=== PATIENT | female | born 1995 | race Caucasian/White ===

== ENCOUNTER 2020-07-22 06:04 | Inpatient (IN) | payer OTHER ==
[2020-07-22 07:16] VITALS: BMI 40.8
[2020-07-22] MEDS ORDERED: CITRIC ACID/SODIUM CITRATE 30 ML UNIT-DOSE CUP PO ONE (07:21)
[2020-07-22] MEDS ORDERED: ELECTROLYTE-148 SOLN 500 ML IV ONE (07:21)
[2020-07-22] MEDS ORDERED: morphine SULFATE/PF 0.5 MG/ML (2cc Syringe - QUVA) ONE (08:03)
[2020-07-22] MEDS ORDERED: PHENYLEPHRINE HCL 10 MG/1 ML SINGLE DOSE VIAL ONE (08:03)
[2020-07-22] MEDS ORDERED: ceFAZolin SODIUM 1 GM VIAL ONE (08:45)
[2020-07-22] MEDS ORDERED: ONDANSETRON 4 MG/2 ML VIAL ONE (08:46)
[2020-07-22] MEDS ORDERED: ONDANSETRON 4 MG/2 ML VIAL IVPUSH PRN (09:13)
[2020-07-22] MEDS ORDERED: OXYTOCIN 20 UNITS in 0.9% NS 20 UNIT/1,000 ML INFUS.BAG IV ONE (09:26)
[2020-07-22] MEDS ORDERED: BENZOCAINE 28 GM HEMORRHOIDAL OINTMENT TP PRN (10:00)
[2020-07-22] MEDS ORDERED: IBUPROFEN 800 MG/8 ML IJ IVPB PRN (10:00)
[2020-07-22] MEDS ORDERED: WITCH HAZEL 50% (TUCKS) 40 PAD/JAR PAD TP PRN (10:00)
[2020-07-22] MEDS ORDERED: oxyCODONE HCL 5 MG TABLET PO PRN (10:00)
[2020-07-22] MEDS ORDERED: BENZOCAINE 20% 57 GM BOTTLE TP PRN (10:00)
[2020-07-22] MEDS ORDERED: METHYLERGONOVINE MALEATE 0.2 MG/1 ML AMP IM PRN (10:00)
[2020-07-22] MEDS ORDERED: OXYTOCIN 20 UNITS in 0.9% NS 20 UNIT/1,000 ML INFUS.BAG IV SCH (10:00)
[2020-07-22] MEDS: PRENATAL VITAMINS W/ FOLIC ACID TABLET (FP) PO SCH (11:54)
[2020-07-22] MEDS: FERROUS SO4 325 MG TABLET (FP) PO SCH (16:45)
[2020-07-23] MEDS: SIMETHICONE 80 MG TAB.CHEW (FP) PO PRN ×3 (04:52→21:01)
[2020-07-23] MEDS: IBUPROFEN 600 MG TABLET (FP) PO PRN ×3 (04:52→21:03)
[2020-07-23] MEDS: ACETAMINOPHEN 325 MG TABLET (FP) PO PRN ×3 (04:52→21:03)
[2020-07-23 07:55] LABS: BASO % 0.4 % (0-2.0); EOS % 0.3 % (0-4.5); HEMATOCRIT 33.6 % (32.4-45.2); HEMOGLOBIN 10.6 GM/dL (10.7-15.3); MCH 28.6 pg (25.7-33.7); MCHC 31.6 g/dl (32.0-36.0); MEAN CELL VOLUME 90.5 fl (80-96); MEAN PLT VOLUME 10.1 fl (7.5-11.1); MONO % 5.5 % (3.8-10.2); NEUT % 85.8 % (42.8-82.8); PLATELET COUNT 95 K/MM3 (134-434); RBC 3.71 M/mm3 (3.60-5.2); WHITE BLOOD COUNT 13.5 K/mm3 (4.0-10.0)
[2020-07-23] MEDS: PRENATAL VITAMINS W/ FOLIC ACID TABLET (FP) PO SCH (09:44)
[2020-07-23] MEDS: FERROUS SO4 325 MG TABLET (FP) PO SCH ×2 (09:44→17:18)
[2020-07-23] MEDS ORDERED: BISACODYL 10 MG SUPP.RECT RC PRN (10:00)
[2020-07-23] MEDS: SENNOSIDES/DOCUSATE COMBO (SENNA PLUS) TABLET (UD) PO PRN (21:03)
[2020-07-23] MEDS: oxyCODONE HCL 5 MG TABLET PO PRN (21:04)
[2020-07-24] MEDS: IBUPROFEN 600 MG TABLET (FP) PO PRN ×2 (09:16→19:35)
[2020-07-24] MEDS: SIMETHICONE 80 MG TAB.CHEW (FP) PO PRN ×3 (09:16→19:34)
[2020-07-24] MEDS: PRENATAL VITAMINS W/ FOLIC ACID TABLET (FP) PO SCH (09:16)
[2020-07-24] MEDS: FERROUS SO4 325 MG TABLET (FP) PO SCH ×2 (09:17→17:19)
[2020-07-24] MEDS: ACETAMINOPHEN 325 MG TABLET (FP) PO PRN ×3 (09:17→20:49)
[2020-07-24] MEDS: oxyCODONE HCL 5 MG TABLET PO PRN ×3 (09:18→19:37)
[2020-07-24] MEDS: SENNOSIDES/DOCUSATE COMBO (SENNA PLUS) TABLET (UD) PO PRN (19:34)
[2020-07-25] MEDS: IBUPROFEN 600 MG TABLET (FP) PO PRN ×2 (05:59→10:05)
[2020-07-25] MEDS: SIMETHICONE 80 MG TAB.CHEW (FP) PO PRN (05:59)
[2020-07-25] MEDS: oxyCODONE HCL 5 MG TABLET PO PRN (06:00)
[2020-07-25 07:31] LABS: BASO % 0.2 % (0-2.0); EOS % 1.5 % (0-4.5); HEMATOCRIT 29.4 % (32.4-45.2); HEMOGLOBIN 9.7 GM/dL (10.7-15.3); LYMPH % 10.3 % (8-40); MCH 29.5 pg (25.7-33.7); MCHC 32.9 g/dl (32.0-36.0); MEAN CELL VOLUME 89.7 fl (80-96); MEAN PLT VOLUME 9.9 fl (7.5-11.1); MONO % 8.4 % (3.8-10.2); NEUT % 79.6 % (42.8-82.8); PLATELET COUNT 129 K/MM3 (134-434); RBC 3.28 M/mm3 (3.60-5.2); RDW 14.9 % (11.6-15.6); WHITE BLOOD COUNT 11.8 K/mm3 (4.0-10.0)
[2020-07-25 09:49] VITALS: BP 127/81; PULSE 75; TEMP 98.2
[2020-07-25] MEDS: PRENATAL VITAMINS W/ FOLIC ACID TABLET (FP) PO SCH (10:04)
[2020-07-25] MEDS: ACETAMINOPHEN 325 MG TABLET (FP) PO PRN (10:04)
[2020-07-25] MEDS: FERROUS SO4 325 MG TABLET (FP) PO SCH (10:04)
== END 2020-07-25 15:30 | disposition home or self-care (01) | DRG 540 ==
LOC: JLDR 06:04 → J3W 11:30
PROVIDERS: ADMIT Obstetrics & Gynecology; ATTEND Obstetrics & Gynecology
PROC: 10D00Z1 Extraction of Products of Conception, Low, Open Approach (ICD-10-PCS; principal; 2020-07-22)
DX: O30.033 Twin pregnancy, monochorionic/diamniotic, third trimester (principal); Z37.2 Twins, both liveborn; O32.8XX2 Maternal care for other malpresentation of fetus, fetus 2; Z3A.37 37 weeks gestation of pregnancy
CPT/HCPCS: 36415; 80048; 85025; 85610; 85730; 86780; 86850; 86900; 86901; 88307-TC; C9803; U0003; U0005

== ENCOUNTER 2024-01-08 06:21 | Inpatient (IN) | payer OTHER ==
[2024-01-08] MEDS: ELECTROLYTE-148 SOLN 500 ML IV ONE (07:20)
[2024-01-08 07:23] VITALS: BMI 40.8
[2024-01-08] MEDS: CITRIC ACID/SODIUM CITRATE 30 ML UNIT-DOSE CUP PO ONE (07:27)
[2024-01-08] MEDS ORDERED: PHENYLEPHRINE HCL 10 MG/1 ML SINGLE DOSE VIAL ONE (07:50)
[2024-01-08] MEDS ORDERED: morphine SULFATE/PF 1 MG/2 ML (2cc Syringe - QUVA) ONE (07:50)
[2024-01-08] MEDS ORDERED: FENTANYL CITRATE/PF 50 MCG/ML VIAL ONE (07:50)
[2024-01-08] MEDS ORDERED: OXYTOCIN 10 UNITS/ML VIAL ONE (08:18)
[2024-01-08] MEDS ORDERED: ONDANSETRON 4 MG/2 ML VIAL ONE (08:40)
[2024-01-08] MEDS ORDERED: MIDAZOLAM HCL 2 MG/2 ML SINGLE DOSE VIAL ONE (09:00)
[2024-01-08 10:02] LABS: CORD HCO3 26.9 mmHg (20-29); CORD PCO2 64.8 mmHg (30-78); CORD pH 7.236 (7.14-7.44)
[2024-01-08 10:05] LABS: CORD HCO3 25.6 mmHg (20-29); CORD PCO2 49.6 mmHg (30-78); CORD pH 7.331 (7.14-7.44)
[2024-01-08] MEDS ORDERED: ONDANSETRON 4 MG/2 ML VIAL IVPUSH PRN (10:20)
[2024-01-08] MEDS ORDERED: OXYTOCIN 20 UNITS in 0.9% NS 20 UNIT/1,000 ML INFUS.BAG IV ONE (10:49)
[2024-01-08] MEDS ORDERED: IBUPROFEN 800 MG/8 ML IJ IVPB ONE (11:40)
[2024-01-08] MEDS: IBUPROFEN 800 MG/8 ML IJ IVPB PRN (11:45)
[2024-01-08] MEDS: BETAMETHASONE DIP 0.05% TP LOTION 60 ML BOTTLE TP SCH (11:48)
[2024-01-08] MEDS ORDERED: METHYLERGONOVINE MALEATE 0.2 MG/1 ML AMP IM PRN (12:59)
[2024-01-08] MEDS: ACETAMINOPHEN 1000 MG/100 ML BAG IVPB PRN (13:11)
[2024-01-08] MEDS: OXYTOCIN 20 UNITS in 0.9% NS 20 UNIT/1,000 ML INFUS.BAG IV SCH (19:04)
[2024-01-09] MEDS: IBUPROFEN 600 MG TABLET (FP) PO PRN (05:24)
[2024-01-09 08:05] LABS: BASO % 0.2 % (0-2.0); HEMATOCRIT 34.3 % (32.4-45.2); HEMOGLOBIN 11.3 GM/dL (10.7-15.3); LYMPH % 11.8 % (8-40); MCH 29.3 pg (25.7-33.7); MEAN PLT VOLUME 8.9 fl (7.5-11.1); MONO % 7.4 % (3.8-10.2); NEUT % 79.6 % (42.8-82.8); PLATELET COUNT 180 10^3/uL (134-434); RBC 3.86 M/mm3 (3.60-5.2); WHITE BLOOD COUNT 10.4 K/mm3 (4.0-10.0)
[2024-01-09] MEDS: ACETAMINOPHEN 325 MG TABLET (FP) PO PRN (09:06)
[2024-01-09] MEDS: ENOXAPARIN NA (PORCINE) 40 MG/0.4 ML DISP.SYRIN SQ SCH (09:06)
[2024-01-09] MEDS: BISACODYL 10 MG SUPP.RECT RC PRN (14:51)
[2024-01-09] MEDS: oxyCODONE HCL 5 MG TABLET PO PRN (14:51)
[2024-01-09] MEDS: SIMETHICONE 80 MG TAB.CHEW (FP) PO PRN (17:01)
[2024-01-09 20:41] VITALS: RESP 18
[2024-01-10] MEDS: oxyCODONE HCL 5 MG TABLET PO PRN (02:31)
[2024-01-10] MEDS: ELECTROLYTE-148 SOLN 1,000 ML IV SCH (07:15)
[2024-01-10] MEDS: ACETAMINOPHEN 325 MG TABLET (FP) PO SCH (09:51)
[2024-01-10] MEDS: IBUPROFEN 600 MG TABLET (FP) PO SCH (12:05)
[2024-01-10 21:54] VITALS: BP 115/74; PULSE 68; TEMP 98.2
[2024-01-11 08:21] LABS: BASO % 0.3 % (0-2.0); EOS % 1.8 % (0-4.5); HEMATOCRIT 35.4 % (32.4-45.2); HEMOGLOBIN 11.3 GM/dL (10.7-15.3); LYMPH % 17.3 % (8-40); MCH 28.6 pg (25.7-33.7); MCHC 31.9 g/dl (32.0-36.0); MEAN CELL VOLUME 89.7 fl (80-96); MEAN PLT VOLUME 8.5 fl (7.5-11.1); NEUT % 70.6 % (42.8-82.8); PLATELET COUNT 243 10^3/uL (134-434); RBC 3.95 M/mm3 (3.60-5.2); RDW 13.7 % (11.6-15.6)
== END 2024-01-11 11:30 | disposition home or self-care (01) | DRG 788 ==
LOC: JLDR 06:21 → J3W 12:40
PROVIDERS: ADMIT Obstetrics & Gynecology; ATTEND Obstetrics & Gynecology
PROC: 10D00Z1 Extraction of Products of Conception, Low, Open Approach (ICD-10-PCS; principal; 2024-01-08)
DX: O34.211 Maternal care for low transverse scar from previous cesarean delivery (principal); Z3A.39 39 weeks gestation of pregnancy; Z37.0 Single live birth
CPT/HCPCS: 36415; 36600; 59409; 82803; 85025; 88307-TC; 94010; J0131